=== PATIENT | female | born 1970 | race Caucasian/White ===

== ENCOUNTER 2023-07-20 11:21 | Emergency (ER) | payer OTHER ==
[~2023-07-20] VITALS: Ht 157.5 cm; Wt 77.1 kg
[2023-07-20 11:31] VITALS: BP 146/77; TEMP 98
[2023-07-20] MEDS ORDERED: AMOX/CLAVULANATE 875 MG TABLET ONE (11:49)
[2023-07-20] MEDS ORDERED: AMOX/CLAVULANATE 875 MG TABLET PO ONE (12:00)
[2023-07-20] MEDS ORDERED: AMOX-430 PO (12:27)
[2023-07-20 12:41] VITALS: O2SAT 98
== END 2023-07-20 12:41 | disposition home or self-care (01) ==
LOC: ER 11:34
DX: S41.131A Puncture wound without foreign body of right upper arm, initial encounter (principal); E78.5 Hyperlipidemia, unspecified; W53.11XA Bitten by rat, initial encounter; Y93.89 Activity, other specified; Y92.89 Other specified places as the place of occurrence of the external cause; Y99.8 Other external cause status